=== PATIENT | male | born 1960 | race Caucasian/White ===

== ENCOUNTER 2016-08-12 09:16 | Emergency (ER) | payer OTHER ==
[~2016-08-12] VITALS: Ht 180.3 cm; Wt 108.9 kg
[2016-08-12 09:17] VITALS: BP 160/94
[2016-08-12] MEDS ORDERED: TIZANIDINE HCL4 MG PO (09:58)
[2016-08-12] MEDS ORDERED: IBUPROFEN 600600 M1 PO (09:58)
== END 2016-08-12 10:19 | disposition home or self-care (01) ==
LOC: ER 09:16
DX: S16.1XXA Strain of muscle, fascia and tendon at neck level, initial encounter (principal); I10 Essential (primary) hypertension; Z95.5 Presence of coronary angioplasty implant and graft; F17.210 Nicotine dependence, cigarettes, uncomplicated; V89.2XXA Person injured in unspecified motor-vehicle accident, traffic, initial encounter; Y93.89 Activity, other specified; Y92.89 Other specified places as the place of occurrence of the external cause; Y99.8 Other external cause status